=== PATIENT | female | born 1995 | race Caucasian/White ===

== ENCOUNTER 2016-06-23 18:34 | Observation (INO) ==
[2016-06-23 19:33] LABS: Bilirubin,Urine Negative (Negative); Blood,Urine Negative (Negative); Clarity,Urine Cloudy (Clear); Color,Urine Yellow (Yellow); Glucose,Urine (UA) Normal (Normal); Ketones,Urine Negative (Negative); Leukocyte Esterase,Urine Negative (Negative); Nitrite,Urine Negative (Negative); Protein,Urine Trace mg/dL (Neg-Trace); Specific Gravity,Urine 1.027 (1.010-1.025); Urobilinogen,Urine Normal (Normal)
[2016-06-23 19:36] LABS: Bacteria,Urine Few per hpf (None-Few); Hyaline Casts,Urine None Seen per lpf (None-Few); RBC,Urine 0-3 per hpf (0-3); Squamous Epithelial Cell,Urine Many per lpf (None-Few)
--- NOTE | 2016-06-23 19:56 | OB/GYN Progress Note ---
Date of Encounter: 06/23/16 Time of Encounter: 19:54 - Assessment and Plan (1) 24 weeks gestation of Current Visit: Yes Status: Acute Pt receives PNC w/ Dr Le w/ scheduled f/u (2) Decreased movement affecting management of in second trimester Current Visit: Yes Status: Acute monitoring reassuring and movement audible per RN Subjective - Subjective Principal diagnosis: 24 weeks w/ decreased movement Interval history: Pt reports not feeling movement today. Seen by outside OB this week and dxd w/ UTI, currently on antibx. + clear d/c which has een preset for a while and evaluated recently by POB as well. No vaginal bleeding or cramping Antepartum ROS: new complaints, no vaginal bleeding, no contractions Objective - Vital Signs Vital Signs: Intake and Output 06/23/16 06/23/16 06/23/16 07:59 15:59 23:59 Other: Weight 68.039 kg Patient Weight 06/23/16 23:59 Weight 68.039 kg - Exam FHR: auscultation normal FHR comments: 140s baseline w/ acels, no ctx Abdomen: Present: soft, gravid (per RN) - Labs Labs: Abnormal lab results Urine Clarity Cloudy (Clear) A 06/23/16 19:20 Ur Specific Moran 1.027 (1.010-1.025) H 06/23/16 19:20 Urine Microscopic WBC 3-5 per hpf (0-3) H 06/23/16 19:20 Ur Squamous Epith Cells Many per lpf (None-Few) H 06/23/16 19:20 - Allied health notes Allied health notes reviewed: nursing
== END 2016-06-23 19:59 | disposition home or self-care (01) ==
LOC: 1NENULAB
PROVIDERS: ADMIT Obstetrics & Gynecology; ATTEND Obstetrics & Gynecology

== ENCOUNTER → 2016-09-26 23:06 | Observation (INO) ==
[2016-09-26 22:06] VITALS: BP 123/59
[2016-09-26 22:36] LABS: Basophils # 0.1 K/mcL (0.0-0.2); Basophils % 0.5 %; Eosinophils # 0.5 K/mcL (0.0-0.6); Hematocrit 30.5 % (35.3-44.9); Hemoglobin 9.9 g/dL (11.5-15.4); Immature Granulocytes % 1.2 % (0-4); Lymphocytes # 1.2 K/mcL (0.6-4.6); Lymphocytes % 12.3 %; Mean Corpuscular HGB Conc 32.5 g/dL (31.6-35.5); Mean Corpuscular Hemoglobin 28.8 pg (28.0-33.3); Mean Corpuscular Volume 88.7 fL (83.0-100.0); Mean Platelet Volume 11.4 fL (9.4-12.4); Monocytes # 1.1 K/mcL (0.0-1.3); Monocytes % 11.3 %; Neutrophils # 7.1 K/mcL (1.6-8.9); Platelet Count 186 K/mcL (140-400); Red Blood Count 3.44 M/mcL (3.82-4.97); Red Cell Distribution Width 13.4 % (11.5-14.5); Segmented Neutrophils % 69.7 %
[2016-09-26 22:44] LABS: Amphetamine Screen,Urine Negative ng/mL (Cutoff=1000); Barbiturate Screen,Urine Negative ng/mL (Cutoff=200); Benzodiazepines Screen,Urine Negative ng/mL (Cutoff=200); Cannabinoid Screen,Urine Negative ng/mL (Cutoff = 50); Cocaine Screen,Urine Negative ng/mL (Cutoff= 300); Opiate Screen,Urine Negative ng/mL (Cutoff=300); Phencyclidine Screen,Urine Negative ng/mL (Cutoff=25)
--- NOTE | 2016-09-26 22:47 | OB/GYN Progress Note ---
Date of Encounter: 09/26/16 Time of Encounter: 22:33 - Assessment and Plan (1) 37 weeks gestation of Current Visit: Yes Status: Acute admit for observation (2) Rash Current Visit: Yes Status: Acute PIH and Bile acid labs drawn (3) NST (non-stress test) reactive on surveillance Current Visit: Yes Status: Acute RNST baseline 130 bpm Subjective - Subjective Principal diagnosis: Itching and rash with contractions Interval history: Patient is 20 y/o @ 37w5d presents to labor and delivery with c/o itching and a rash for over a month. Patient states lab work was done but she didn't know the results. Patient also reports contractions off and on all day and has had labor in past. Patient reports +FM, denies LOF or VB. Denies any urinary frequency or dysuria. Objective - Vital Signs Vital Signs: Vital Signs Temp Pulse Resp BP 09/26/16 21:57 97.8 F 114 16 123/59 Intake and Output 09/26/16 09/26/16 09/26/16 07:59 15:59 23:59 Other: Weight 78.3 kg Patient Weight 09/26/16 23:59 Weight 78.3 kg - Exam FHR: auscultation normal, category 1 FHR comments: 130 bpm moderate variability +15x15 accels no decels noted. irregular contractions. CAt. 1 tracing. RNST. Auscultation: bilateral: normal Abdomen: Present: normal appearance, soft, gravid Uterus: Present: normal Cervical dilation: 3 Cervix effacement: 80 station: -1 Comments: rash noted on upper abdomen and inner thighs. Rash appears more like plaque like spots verses rash.
[2016-09-26 22:50] LABS: Alanine Aminotransferase 11 Units/L (0-55); Aspartate Amino Transferase 14 Units/L (5-34); BUN/Creatinine Ratio 12 (6-26); Blood Urea Nitrogen 8 mg/dL (7-20); Lactate Dehydrogenase 168 Units/L (159-327); Uric Acid 4.4 mg/dL (2.6-6.0); eGFR For African Americans > 60 (> 60); eGFR For Non-African Americans > 60 (> 60)
--- NOTE | 2016-09-30 08:09 | Discharge Summary ---
Date of Encounter: 09/26/16 Time of Encounter: 22:54 - Discharge Diagnosis (1) 37 weeks gestation of Priority: Secondary Status: Acute (2) Rash Priority: Primary Status: Acute Comments: Benadryl and hydrocortisone cream prn (3) NST (non-stress test) reactive on surveillance Priority: Secondary Status: Acute Comments: RNST - Discharge Medications Prescriptions: Hydrocortisone 1% OINT [Cortaid] 1 appl TP BID #1 tube HydrOXYzine Pamoate [Vistaril] 25 mg PO HS #10 capsule Home Medications: Pnv Plus Multivit Tab 06/23/16 [History] Ranitidine HCl [Zantac 75] 75 mg PO BID #30 tablet 07/29/16 [Rx] HydrOXYzine Pamoate [Vistaril] 25 mg PO HS #10 capsule 09/26/16 [Rx] Hydrocortisone 1% OINT [Cortaid] 1 appl TP BID #1 tube 09/26/16 [Rx] Allergies/Adverse Reactions: Allergies morphine Allergy (Verified 05/05/16 21:02) Hives Penicillins Allergy (Verified 05/05/16 21:02) Hives promethazine [From Phenergan] Allergy (Verified 05/05/16 21:02) Hives Data Procedures and tests throughout hospitalization: Laboratory Tests 09/26/16 09/26/16 09/26/16 22:23 22:23 22:23 WBC 10.1 RBC 3.44 L Hgb 9.9 L Hct 30.5 L MCV 88.7 MCH 28.8 MCHC 32.5 RDW 13.4 Plt Count 186 MPV 11.4 Immature Gran % 1.2 Seg Neutrophils % 69.7 Lymphocytes % 12.3 Monocytes % 11.3 Eosinophils % 5.0 Basophils % 0.5 Neutrophils # 7.1 Lymphocytes # 1.2 Monocytes # 1.1 Eosinophils # 0.5 Basophils # 0.1 BUN 8 Creatinine 0.68 Est GFR ( Amer) > 60 Est GFR (Non-Af Amer) > 60 BUN/Creatinine Ratio 12 Uric Acid 4.4 AST 14 ALT 11 Lactate Dehydrogenase 168 Total Bile Acids Urine Opiates Screen Negative Ur Barbiturates Screen Negative Ur Phencyclidine Scrn Negative Ur Amphetamines Screen Negative U Benzodiazepines Scrn Negative Urine Cocaine Screen Negative U Marijuana (THC) Screen Negative 09/26/16 22:31 WBC RBC Hgb Hct MCV MCH MCHC RDW Plt Count MPV Immature Gran % Seg Neutrophils % Lymphocytes % Monocytes % Eosinophils % Basophils % Neutrophils # Lymphocytes # Monocytes # Eosinophils # Basophils # BUN Creatinine Est GFR ( Amer) Est GFR (Non-Af Amer) BUN/Creatinine Ratio Uric Acid AST ALT Lactate Dehydrogenase Total Bile Acids 5 Urine Opiates Screen Ur Barbiturates Screen Ur Phencyclidine Scrn Ur Amphetamines Screen U Benzodiazepines Scrn Urine Cocaine Screen U Marijuana (THC) Screen Labs on day of discharge: Labs from last 24 hours 09/26/16 22:31 Total Bile Acids 5 Date of admission: 09/26/16 21:51 Primary care physician: PCP NO Discharging clinician: Margot Yan Anticipated date of discharge: 09/26/16 - Patient Status Disposition: Home, Self-Care Condition: Good - Discharge Instructions Follow Up With: LAMIN,PCP [Primary Care Provider] - Additional Instructions: LABOR AND DELIVERY DISCHARGE INSTRUCTIONS Signs and Symptoms to be Reported to your Doctor Immediately: * Sudden gush, continuous or intermittent lead of fluid from vagina (note the time of gush and color of fluid) * Onset of bright red vaginal bleeding with or without pain (if you had a vaginal exam during this visit you may notice some dark red spotting. This is normal.) * Contractions that are 5 minutes apart (from the beginning of one contraction to the beginning of the next) and last 45-60 seonds; contractions that you can no longer walk, talk or laugh through. * A change in the baby's activity. This could be an increase or decrease in activity. * Severe headache which does not go away with tylenol. * Sudden swelling in the face, hands, arms and/or legs. * Upper abdominal pain - sometimes associated with heartburn or nausea and is not relieved by Maalox, Mylanta or Tums. * Kick Counts __ One hour after a meal, lay down on one side in a quiet place. Count the number of time the baby moves during an hour. If less than 6 movements, notify your physician Diet: *Force fluids, 8 to 10 tall glasses of fluid per day - may include popsicles and jello *Limit caffeine - this includes chocolate, coffee, tea, any soft drink containing such as all opal, Crow Yellow and Mountain Dew - Diet and Activity Diet: regular diet Hospital Course [employer] Hospital course: Patient to follow up with Dr. Le as scheduled. Time Attestation: Total time spent providing and/or coordinating discharge services: Time Spent: Less than 30 minutes Exam - Constitutional Vitals: Temp Pulse Resp BP 97.8 F 114 16 123/59 09/26/16 21:57 09/26/16 21:57 09/26/16 21:57 09/26/16 21:57 - VTE Reasons for not Prescribing Prophylaxis: Treatment not Indicated - Low risk for VTE
== END | disposition home or self-care (01) ==
LOC: 1NENULAB

== ENCOUNTER → 2019-03-24 23:30 | Observation (INO) ==
[2019-03-24 21:52] LABS: Bilirubin,Urine Negative (Negative); Blood,Urine Negative (Negative); Clarity,Urine Cloudy (Clear); Color,Urine Yellow (Yellow); Glucose,Urine (UA) Normal (Normal); Ketones,Urine Negative (Negative); Leukocyte Esterase,Urine Large (Negative); Nitrite,Urine Negative (Negative); Protein,Urine Negative (Neg-Trace); Specific Gravity,Urine 1.022 (1.010-1.025); Urobilinogen,Urine Normal (Normal)
[2019-03-24 21:55] LABS: Bacteria,Urine Many per hpf (None-Few); Hyaline Casts,Urine Few per lpf (None-Few); RBC,Urine 0-3 per hpf (0-3); Squamous Epithelial Cell,Urine Many per lpf (None-Few); WBC,Urine 50-100 per hpf (0-3)
[2019-03-24 21:58] LABS: Amphetamine Screen,Urine Negative ng/mL (Cutoff=1000); Barbiturate Screen,Urine Negative ng/mL (Cutoff=200); Benzodiazepines Screen,Urine Negative ng/mL (Cutoff=200); Cannabinoid Screen,Urine Negative ng/mL (Cutoff = 50); Cocaine Screen,Urine Negative ng/mL (Cutoff= 300); Opiate Screen,Urine Negative ng/mL (Cutoff=300); Phencyclidine Screen,Urine Negative ng/mL (Cutoff=25)
[2019-03-25 01:20] LABS: Candida DNA DETECTED (Not Detect); Gardnerella DNA Not Detected (Not Detect); Trichomonas DNA Not Detected (Not Detect)
== END | disposition home or self-care (01) ==
LOC: 1NENULAB
PROVIDERS: ADMIT Registered Nurse; ATTEND Registered Nurse

== ENCOUNTER 2019-04-16 20:54 | Observation (INO) ==
[2019-04-16 21:00] LABS: Bilirubin,Urine Negative (Negative); Blood,Urine Negative (Negative); Clarity,Urine Cloudy (Clear); Color,Urine Dark Yellow (Yellow); Glucose,Urine (UA) Normal (Normal); Ketones,Urine Negative (Negative); Leukocyte Esterase,Urine Small (Negative); Nitrite,Urine Negative (Negative); Protein,Urine Trace mg/dL (Neg-Trace); Specific Gravity,Urine 1.026 (1.010-1.025); Urobilinogen,Urine Normal (Normal)
[2019-04-16 21:02] LABS: Bacteria,Urine Moderate per hpf (None-Few); Hyaline Casts,Urine None Seen per lpf (None-Few); Squamous Epithelial Cell,Urine Many per lpf (None-Few); WBC,Urine 15-30 per hpf (0-3)
[2019-04-16 21:11] LABS: Amphetamine Screen,Urine Negative ng/mL (Cutoff=1000); Barbiturate Screen,Urine Negative ng/mL (Cutoff=200); Benzodiazepines Screen,Urine Negative ng/mL (Cutoff=200); Cannabinoid Screen,Urine Negative ng/mL (Cutoff = 50); Cocaine Screen,Urine Negative ng/mL (Cutoff= 300); Opiate Screen,Urine Negative ng/mL (Cutoff=300); Phencyclidine Screen,Urine Negative ng/mL (Cutoff=25)
== END 2019-04-16 22:00 | disposition home or self-care (01) ==
LOC: 1NENUNUR → 1NENULAB 20:54
PROVIDERS: ADMIT Obstetrics & Gynecology; ATTEND Obstetrics & Gynecology

== ENCOUNTER 2019-05-11 20:09 | Inpatient (IN) ==
[~2019-05-11 20:09] MED LIST: *HR* Nalbuphine 10 MG/ML AMPUL IVP PRN; Famotidine 20 MG/2 ML VIAL IVP PRN; Lidocaine 1% 20 ML MDV INFILT PRN; Metoclopramide 10 MG/2 ML VIAL IVP PRN; Naloxone 0.4 MG/ML INJ IVP PRN; Ondansetron 4 MG/2 ML VIAL IVP PRN
[2019-05-11] MEDS ORDERED: Ringers Solution, Lactated 1,000 ML ONE (20:13)
[2019-05-11] MEDS ORDERED: Ringers Solution, Lactated 1,000 ML IVC SCH (20:15)
[2019-05-11 20:21] LABS: Basophils % 0.3 %; Eosinophils # 0.1 K/mcL (0.0-0.6); Eosinophils % 1.1 %; Hematocrit 34.5 % (35.3-44.9); Hemoglobin 11.5 g/dL (11.5-15.4); Immature Granulocytes % 0.6 % (0-4); Lymphocytes # 1.2 K/mcL (0.6-4.6); Lymphocytes % 15.2 %; Mean Corpuscular HGB Conc 33.3 g/dL (31.6-35.5); Mean Corpuscular Hemoglobin 29.6 pg (28.0-33.3); Mean Corpuscular Volume 88.9 fL (83.0-100.0); Mean Platelet Volume 11.6 fL (9.4-12.4); Monocytes # 0.7 K/mcL (0.0-1.3); Monocytes % 9.1 %; Neutrophils # 5.9 K/mcL (1.6-8.9); Platelet Count 215 K/mcL (140-400); Red Blood Count 3.88 M/mcL (3.82-4.97); Red Cell Distribution Width 13.6 % (11.5-14.5); Segmented Neutrophils % 73.7 %; White Blood Count 7.9 K/mcL (4.3-11.1)
[2019-05-11 21:03] LABS: Creatinine,Urine 90 mg/dL; Protein/Creatinine Ratio,Urine 0.28 mg/mg (0.00-0.20)
[2019-05-11] MEDS ORDERED: Epidural Premix (fent/bupiv) 110 ML EP SCH (21:15)
[2019-05-11 21:59] LABS: Amphetamine Screen,Urine Negative ng/mL (Cutoff=1000); Barbiturate Screen,Urine Negative ng/mL (Cutoff=200); Benzodiazepines Screen,Urine Negative ng/mL (Cutoff=200); Cannabinoid Screen,Urine Negative ng/mL (Cutoff = 50); Cocaine Screen,Urine Negative ng/mL (Cutoff= 300); Opiate Screen,Urine Negative ng/mL (Cutoff=300); Phencyclidine Screen,Urine Negative ng/mL (Cutoff=25)
[2019-05-11 22:00] LABS: Alanine Aminotransferase 11 Units/L (7-52); Aspartate Amino Transferase 15 Units/L (13-39); BUN/Creatinine Ratio 11 (6-26); Blood Urea Nitrogen 5 mg/dL (6-20); Lactate Dehydrogenase 169 Units/L (140-271); Uric Acid 4.4 mg/dL (2.3-7.6); eGFR For African Americans > 60 (> 60); eGFR For Non-African Americans > 60 (> 60)
[2019-05-11] MEDS ORDERED: *HR* FentaNYL (PF) 100 MCG/2 ML VIAL ONE (22:34)
[2019-05-11] MEDS ORDERED: Bupivacaine-MPF 0.25% 10 ML VIAL ONE (22:34)
[2019-05-12] MEDS ORDERED: Oxytocin 20 units/ LR 1000 mL 20 UNIT/1,000 ML BAG IVC ONE (02:17)
[2019-05-12] MEDS ORDERED: Methylergonovine 0.2 MG/ML AMPUL IM ONE ×2 (05:10→13:31)
[2019-05-12] MEDS ORDERED: Oxytocin 20 units/ LR 1000 mL 20 UNIT/1,000 ML BAG IVC SCH (08:14)
[2019-05-12] MEDS ORDERED: Lanolin 7 G OINT...G. TP PRN (08:14)
[2019-05-12] MEDS ORDERED: Rho Immune Globulin 1,500 UNIT SYRINGE IM PRN (08:14)
[2019-05-12] MEDS ORDERED: Benzocaine/Menthol 56 GM AEROSOL SPRAY TP PRN (08:14)
[2019-05-12] MEDS ORDERED: Prenatal Vit/FA 1 EACH TABLET PO SCH (09:00)
[2019-05-12] MEDS: Ibuprofen 600 MG TABLET PO PRN ×2 (14:14→20:14)
[2019-05-12] MEDS: Acetaminophen 325 MG TABLET PO PRN (18:32)
[2019-05-13] MEDS: Acetaminophen 325 MG TABLET PO PRN (05:01)
[2019-05-13] MEDS: Ibuprofen 600 MG TABLET PO PRN (05:03)
[2019-05-13] MEDS ORDERED: Ringers Solution, Lactated 1,000 ML ONE (05:41)
[2019-05-13 08:16] VITALS: BP 104/55
[2019-05-13 09:54] LABS: Basophils # 0.1 K/mcL (0.0-0.2); Basophils % 0.6 %; Eosinophils # 0.1 K/mcL (0.0-0.6); Eosinophils % 1.3 %; Hematocrit 28.4 % (35.3-44.9); Immature Granulocytes % 0.3 % (0-4); Lymphocytes # 1.7 K/mcL (0.6-4.6); Lymphocytes % 17.6 %; Mean Corpuscular HGB Conc 32.4 g/dL (31.6-35.5); Mean Corpuscular Volume 92.5 fL (83.0-100.0); Mean Platelet Volume 11.5 fL (9.4-12.4); Monocytes # 0.8 K/mcL (0.0-1.3); Monocytes % 8.3 %; Neutrophils # 6.9 K/mcL (1.6-8.9); Platelet Count 196 K/mcL (140-400); Red Blood Count 3.07 M/mcL (3.82-4.97); Red Cell Distribution Width 13.6 % (11.5-14.5); Segmented Neutrophils % 71.9 %; White Blood Count 9.6 K/mcL (4.3-11.1)
[2019-05-13 09:55] LABS: Hemoglobin 9.2 g/dL (11.5-15.4)
== END 2019-05-13 13:51 | disposition home or self-care (01) | DRG 807 ==
LOC: 1NENULAB → 1NENUOBS 05-12 08:13
PROVIDERS: ADMIT Obstetrics & Gynecology; ATTEND Obstetrics & Gynecology

== ENCOUNTER → 2021-04-01 16:35 | Observation (INO) ==
[2021-04-01 16:13] LABS: Bilirubin,Urine Negative (Negative); Blood,Urine Negative (Negative); Clarity,Urine Clear (Clear); Color,Urine Yellow (Yellow); Glucose,Urine (UA) Normal (Normal); Ketones,Urine Negative (Negative); Leukocyte Esterase,Urine Negative (Negative); Nitrite,Urine Negative (Negative); Protein,Urine Trace mg/dL (Neg-Trace); Specific Gravity,Urine > 1.030 (1.010-1.025); Urobilinogen,Urine Normal (Normal)
== END | disposition home or self-care (01) ==
LOC: 1NENULAB
PROVIDERS: ADMIT Advanced Practice Midwife; ATTEND Advanced Practice Midwife

== ENCOUNTER → 2021-06-06 22:26 | Observation (INO) ==
[2021-06-06 23:18] LABS: Bilirubin,Urine Negative (Negative); Blood,Urine Negative (Negative); Clarity,Urine Clear (Clear); Color,Urine Light-Yellow (Yellow); Glucose,Urine (UA) Normal (Normal); Ketones,Urine Trace mg/dL (Negative); Leukocyte Esterase,Urine Negative (Negative); Nitrite,Urine Negative (Negative); PH,Urine 6.5 pH Units (5.0-8.0); Protein,Urine Trace mg/dL (Neg-Trace); Specific Gravity,Urine 1.025 (1.010-1.025); Urobilinogen,Urine Normal (Normal)
== END | disposition home or self-care (01) ==
LOC: 1NENULAB
PROVIDERS: ADMIT Student in an Organized Health Care Education/Training Program; ATTEND Student in an Organized Health Care Education/Training Program

== ENCOUNTER → 2021-06-29 17:15 | Observation (INO) ==
[2021-06-29 17:01] LABS: Bacteria,Urine Few per hpf (None-Few); Bilirubin,Urine Negative (Negative); Blood,Urine Negative (Negative); Clarity,Urine Turbid (Clear); Color,Urine Yellow (Yellow); Glucose,Urine (UA) Normal (Normal); Ketones,Urine Trace mg/dL (Negative); Leukocyte Esterase,Urine Moderate (Negative); Mucus,Urine Few per lpf (None-Few); Nitrite,Urine Negative (Negative); PH,Urine 6.5 pH Units (5.0-8.0); Protein,Urine 30 mg/dL (Neg-Trace); Specific Gravity,Urine 1.027 (1.010-1.025); Squamous Epithelial Cell,Urine Many per hpf (None-Few); Urobilinogen,Urine Normal (Normal)
[2021-06-29 18:22] LABS: Gardnerella DNA Not Detected (Not Detect); Trichomonas DNA Not Detected (Not Detect)
[2021-06-29 18:23] LABS: Candida DNA Not Detected (Not Detect)
== END | disposition home or self-care (01) ==
LOC: 1NENULAB
PROVIDERS: ADMIT Registered Nurse; ATTEND Registered Nurse

== ENCOUNTER → 2021-07-13 22:50 | Observation (INO) ==
[2021-07-13 20:37] LABS: Bacteria,Urine Few per hpf (None-Few); Bilirubin,Urine Negative (Negative); Blood,Urine Moderate (Negative); Clarity,Urine Turbid (Clear); Color,Urine Yellow (Yellow); Glucose,Urine (UA) Normal (Normal); Ketones,Urine Negative (Negative); Leukocyte Esterase,Urine Small (Negative); Mucus,Urine Few per lpf (None-Few); Nitrite,Urine Negative (Negative); Protein,Urine 50 mg/dL (Neg-Trace); RBC,Urine TNTC per hpf (0-3); Specific Gravity,Urine 1.029 (1.010-1.025); Squamous Epithelial Cell,Urine Many per hpf (None-Few); Urobilinogen,Urine Normal (Normal)
[2021-07-13 22:26] LABS: Basophils # 0.1 K/mcL (0.0-0.2); Basophils % 0.5 %; Eosinophils # 0.2 K/mcL (0.0-0.6); Eosinophils % 1.6 %; Hematocrit 30.8 % (35.3-44.9); Hemoglobin 10.1 g/dL (11.5-15.4); Immature Granulocytes % 1.4 % (0-4); Lymphocytes % 20.2 %; Mean Corpuscular HGB Conc 32.8 g/dL (31.6-35.5); Mean Corpuscular Hemoglobin 30.1 pg (28.0-33.3); Mean Corpuscular Volume 91.7 fL (83.0-100.0); Monocytes # 0.8 K/mcL (0.0-1.3); Monocytes % 8.4 %; Neutrophils # 6.8 K/mcL (1.6-8.9); Platelet Count 189 K/mcL (140-400); Red Blood Count 3.36 M/mcL (3.82-4.97); Red Cell Distribution Width 12.9 % (11.5-14.5); Segmented Neutrophils % 67.9 %
[~2021-07-13 22:50] MED LIST changes: -*HR* Nalbuphine 10 MG/ML AMPUL IVP PRN; -Famotidine 20 MG/2 ML VIAL IVP PRN; -Lidocaine 1% 20 ML MDV INFILT PRN; -Metoclopramide 10 MG/2 ML VIAL IVP PRN; -Naloxone 0.4 MG/ML INJ IVP PRN; -Ondansetron 4 MG/2 ML VIAL IVP PRN; +Ringers Solution, Lactated 1,000 ML IVC ONE
== END | disposition home or self-care (01) ==
LOC: 1NENULAB
PROVIDERS: ADMIT Advanced Practice Midwife; ATTEND Advanced Practice Midwife

== ENCOUNTER → 2021-08-05 21:45 | Observation (INO) ==
[2021-08-05 21:21] LABS: Bilirubin,Urine Negative (Negative); Blood,Urine Negative (Negative); Clarity,Urine Turbid (Clear); Color,Urine Yellow (Yellow); Glucose,Urine (UA) Normal (Normal); Ketones,Urine 10 mg/dL (Negative); Leukocyte Esterase,Urine Negative (Negative); Mucus,Urine Few per lpf (None-Few); Nitrite,Urine Negative (Negative); PH,Urine 6.5 pH Units (5.0-8.0); Protein,Urine 50 mg/dL (Neg-Trace); RBC,Urine 0-3 per hpf (0-3); Specific Gravity,Urine > 1.030 (1.010-1.025); Squamous Epithelial Cell,Urine Many per hpf (None-Few); Urobilinogen,Urine Normal (Normal)
[~2021-08-05 21:45] MED LIST changes: +Famotidine 20 MG/2 ML VIAL IVP ONE; +Ondansetron 4 MG/2 ML VIAL IVP ONE
[2021-08-05 21:57] LABS: Candida DNA Not Detected (Not Detect); Gardnerella DNA Not Detected (Not Detect); Trichomonas DNA Not Detected (Not Detect)
== END | disposition home or self-care (01) ==
LOC: 1NENULAB
PROVIDERS: ADMIT Advanced Practice Midwife; ATTEND Advanced Practice Midwife

== ENCOUNTER → 2021-09-07 17:56 | Observation (INO) | END | disposition home or self-care (01) | LOC: 1NENULAB | PROVIDERS: ADMIT Registered Nurse; ATTEND Registered Nurse ==

== ENCOUNTER → 2021-09-08 07:02 | Observation (INO) | END | disposition home or self-care (01) | LOC: 1NENULAB | PROVIDERS: ADMIT Registered Nurse; ATTEND Registered Nurse ==

== ENCOUNTER → 2021-09-11 20:03 | Observation (INO) ==
[~2021-09-11 20:03] MED LIST changes: -Famotidine 20 MG/2 ML VIAL IVP ONE; -Ringers Solution, Lactated 1,000 ML IVC ONE; +Ringers Solution, Lactated 1,000 ML IVC SCH
== END | disposition home or self-care (01) ==
LOC: 1NENULAB
PROVIDERS: ADMIT Student in an Organized Health Care Education/Training Program; ATTEND Student in an Organized Health Care Education/Training Program

== ENCOUNTER 2021-09-17 03:44 | Inpatient (IN) ==
[2021-09-17] MEDS ORDERED: Ondansetron 4 MG/2 ML VIAL IVP PRN (03:52)
[2021-09-17] MEDS ORDERED: Metoclopramide 10 MG/2 ML VIAL IVP PRN (03:52)
[2021-09-17] MEDS ORDERED: Naloxone 0.4 MG/ML INJ IVP PRN (03:52)
[2021-09-17] MEDS ORDERED: Famotidine 20 MG/2 ML VIAL IVP PRN (03:52)
[2021-09-17] MEDS ORDERED: Oxytocin 30 UNIT/503 ML BAG IVC SCH (04:00)
[2021-09-17] MEDS ORDERED: Epidural Premix (fent/bupiv) 110 ML EP SCH (04:45)
[2021-09-17] MEDS ORDERED: EPHEDrine 50 MG/ML VIAL IVP PRN (04:45)
[2021-09-17 05:07] LABS: Basophils # 0.1 K/mcL (0.0-0.2); Basophils % 0.6 %; Eosinophils # 0.3 K/mcL (0.0-0.6); Eosinophils % 2.9 %; Hematocrit 30.2 % (35.3-44.9); Hemoglobin 10.1 g/dL (11.5-15.4); Immature Granulocytes % 1.3 % (0-4); Lymphocytes # 2.1 K/mcL (0.6-4.6); Lymphocytes % 20.7 %; Mean Corpuscular HGB Conc 33.4 g/dL (31.6-35.5); Mean Corpuscular Hemoglobin 28.5 pg (28.0-33.3); Mean Corpuscular Volume 85.1 fL (83.0-100.0); Mean Platelet Volume 12.3 fL (9.4-12.4); Monocytes % 9.5 %; Neutrophils # 6.5 K/mcL (1.6-8.9); Platelet Count 220 K/mcL (140-400); Red Blood Count 3.55 M/mcL (3.82-4.97); Red Cell Distribution Width 15.2 % (11.5-14.5)
[2021-09-17 05:16] LABS: Amphetamine Screen,Urine Negative ng/mL (Cutoff=1000); Barbiturate Screen,Urine Negative ng/mL (Cutoff=200); Benzodiazepines Screen,Urine Negative ng/mL (Cutoff=200); Cannabinoid Screen,Urine Negative ng/mL (Cutoff = 50); Cocaine Screen,Urine Negative ng/mL (Cutoff= 300); Opiate Screen,Urine Negative ng/mL (Cutoff=300); Phencyclidine Screen,Urine Negative ng/mL (Cutoff=25)
[2021-09-17 05:41] LABS: Influenza A PCR Negative (Negative); Influenza B PCR Negative (Negative); Resp. Syncytial Virus PCR Negative (Negative)
[2021-09-17 05:42] LABS: SARS-CoV-2 by PCR (In House) Negative (Negative)
[2021-09-17] MEDS: Ringers Solution, Lactated 1,000 ML IVC SCH ×2 (06:10→09:50)
[2021-09-17] MEDS ORDERED: *HR* FentaNYL (PF) 100 MCG/2 ML VIAL EP ONE (07:55)
[2021-09-17] MEDS ORDERED: Ropivacaine/PF 0.2% 20 ML VIAL EP ONE (07:55)
[2021-09-17] MEDS ORDERED: *HR* FentaNYL (PF) 100 MCG/2 ML VIAL ONE (09:25)
[2021-09-17] MEDS ORDERED: Ropivacaine/PF 0.2% 20 ML VIAL ONE (09:25)
[2021-09-17] MEDS ORDERED: Rho Immune Globulin 1,500 UNIT SYRINGE IM PRN (17:10)
[2021-09-17] MEDS ORDERED: Lanolin 7 G OINT...G. TP PRN (17:10)
[2021-09-17] MEDS ORDERED: Benzocaine/Menthol 56 GM AEROSOL SPRAY TP PRN (17:10)
[2021-09-17] MEDS ORDERED: Ondansetron ODT 4 MG TAB.RAPDIS SL PRN (17:10)
[2021-09-17] MEDS: Ibuprofen 600 MG TABLET PO SCH (18:01)
[2021-09-17] MEDS: Acetaminophen 325 MG TABLET PO SCH (18:01)
[2021-09-18] MEDS: Acetaminophen 325 MG TABLET PO SCH ×3 (00:04→12:14)
[2021-09-18] MEDS: Ibuprofen 600 MG TABLET PO SCH ×3 (00:04→12:14)
[2021-09-18 04:43] LABS: Basophils # 0.1 K/mcL (0.0-0.2); Basophils % 0.6 %; Eosinophils # 0.3 K/mcL (0.0-0.6); Eosinophils % 3.2 %; Hematocrit 27.4 % (35.3-44.9); Hemoglobin 8.9 g/dL (11.5-15.4); Immature Granulocytes % 0.7 % (0-4); Lymphocytes # 2.2 K/mcL (0.6-4.6); Lymphocytes % 22.8 %; Mean Corpuscular HGB Conc 32.5 g/dL (31.6-35.5); Mean Corpuscular Hemoglobin 27.7 pg (28.0-33.3); Mean Corpuscular Volume 85.4 fL (83.0-100.0); Mean Platelet Volume 12.3 fL (9.4-12.4); Monocytes # 0.9 K/mcL (0.0-1.3); Monocytes % 8.9 %; Neutrophils # 6.2 K/mcL (1.6-8.9); Platelet Count 172 K/mcL (140-400); Red Blood Count 3.21 M/mcL (3.82-4.97); Red Cell Distribution Width 14.9 % (11.5-14.5); Segmented Neutrophils % 63.8 %; White Blood Count 9.7 K/mcL (4.3-11.1)
[2021-09-18 07:24] VITALS: BP 113/62; PULSE 80; TEMP 97.6; O2SAT 95
[2021-09-18] MEDS ORDERED: *HR* HYDROcodone/Acet 5/325 mg TABLET PO PRN (08:18)
[2021-09-18] MEDS ORDERED: Prenatal Vit/FA 1 EACH TABLET PO SCH (09:00)
== END 2021-09-18 14:45 | disposition home or self-care (01) | DRG 807 ==
LOC: 1NENULAB 03:44 → 1NENUOBS 15:42
PROVIDERS: ADMIT Obstetrics & Gynecology; ATTEND Obstetrics & Gynecology